=== PATIENT | female | born 1990 | race Hispanic/Latino ===

== ENCOUNTER 2016-07-10 09:08 | Outpatient (CLI) | payer OTHER ==
[~2016-07-10] VITALS: Ht 165.1 cm; Wt 115.2 kg
[~2016-07-10 09:08] MED LIST: ADDERALL XR 2020 MG PO; BENTYL20 MG PO; BREAST PUMP MC; CLEOCIN300 MG PO; CLONIDINE HCL0.1 MG PO; ENDOCET 5-3251 EACH PO; FERROUS SULFAT325 MG PO; IBUPROFEN800 MG PO; IRON 100 PLUS1 EACH PO; MEDROL DOSEPAK4 MG PO; NAPROSYN500 MG PO; NAPROXEN500 MG PO; PHENERGAN-CODE120 ML PO; PRENATAL TABLE1 EAC3 PO; PROVENTIL HFA6.7 GM IH; SERTRALINE HCL25 MG PO; VICODIN,LORT1 TABLET PO; ZITHROMAX TRI-500 MG PO
[2016-07-10 09:22] VITALS: BP 136/82
[2016-07-10 09:38] VITALS: BP 130/59
[2016-07-10] MEDS ORDERED: PRENATAL TABLE1 EACH PO (09:47)
[2016-07-10] MEDS ORDERED: IRON325 M1 PO (09:48)
[2016-07-10 10:29] VITALS: BP 134/80
== END 2016-07-10 11:06 | disposition home or self-care (01) ==
LOC: LDRP-OP 09:08 → 2WEST 09:09
DX: O47.03 False labor before 37 completed weeks of gestation, third trimester (principal); O34.219 Maternal care for unspecified type scar from previous cesarean delivery; Z3A.36 36 weeks gestation of pregnancy; O99.213 Obesity complicating pregnancy, third trimester; O99.333 Smoking (tobacco) complicating pregnancy, third trimester; F17.200 Nicotine dependence, unspecified, uncomplicated
CPT/HCPCS: 59025; G0378

== ENCOUNTER 2016-07-19 17:49 | Outpatient (CLI) | payer OTHER ==
[~2016-07-19] VITALS: Ht 167.6 cm; Wt 101.0 kg
[~2016-07-19 17:49] MED LIST changes: +IRON325 M1 PO; +PRENATAL TABLE1 EACH PO
[2016-07-19 18:25] VITALS: BP 123/58
[2016-07-19 19:02] VITALS: BP 128/65
[2016-07-19 19:44] LABS: EOSINOPHIL COUNT 0.1 K/uL (0-0.3); IMMATURE GRANULOCYTE (%) 0.5 % (0.0-0.7); IMMATURE GRANULOCYTE COUNT 0.1 K/uL; INSTRUMENT ABS NEUTROPHIL CT 10.3 K/uL; LYMPHOCYTE COUNT 2.6 K/uL (1.0-2.8); MCH 29.4 PG (29.0-34.0); MCHC 34.1 G/DL (30.0-36.0); MCV 86.1 FL (83-99); MEAN PLAT.VOLUME 12.4 uM^3 (9.5-12.4); MONOCYTE (%) 4.2 % (3-12); MONOCYTE COUNT 0.6 K/uL (0-0.8); NEUTROPHIL (%) 75.4 % (45-76); NEUTROPHIL COUNT 10.3 K/uL (1.8-6.4); PLATELET COUNT 221 K/uL (156-360); RBC DIS.WIDTH-CV 14.6 % (11.8-14.6); RBC DIS.WIDTH-SD 45.7 % (39-53); RED BLOOD COUNT 3.95 M/uL (3.80-5.20); WHITE BLOOD COUNT 13.6 K/uL (4.1-10.2)
[2016-07-19 21:29] VITALS: BP 130/62
== END 2016-07-19 21:49 | disposition home or self-care (01) ==
LOC: LDRP-OP 17:49 → 2WEST 17:50 → LDRP-OP 08-31 06:06
PROVIDERS: Advanced Practice Midwife
DX: O47.1 False labor at or after 37 completed weeks of gestation (principal); Z3A.38 38 weeks gestation of pregnancy; O34.219 Maternal care for unspecified type scar from previous cesarean delivery
CPT/HCPCS: 59025; 85025; 86900; 86901; G0378; J7120

== ENCOUNTER 2016-07-21 09:22 | Inpatient (IN) | payer OTHER ==
[~2016-07-21] VITALS: Ht 165.1 cm; Wt 118.8 kg
[2016-07-21] VITALS (7 sets, daily range): BP systolic 106–129; BP diastolic 56–74
[2016-07-21 13:41] LABS: EOSINOPHIL (%) 0.7 % (0-5); EOSINOPHIL COUNT 0.1 K/uL (0-0.3); HEMATOCRIT 34.1 % (36.0-46.0); IMMATURE GRANULOCYTE (%) 0.4 % (0.0-0.7); IMMATURE GRANULOCYTE COUNT 0.1 K/uL; LYMPHOCYTE COUNT 2.5 K/uL (1.0-2.8); MCHC 32.8 G/DL (30.0-36.0); MCV 85.3 FL (83-99); MONOCYTE (%) 6.4 % (3-12); MONOCYTE COUNT 0.9 K/uL (0-0.8); NEUTROPHIL (%) 74.1 % (45-76); PLATELET COUNT 198 K/uL (156-360); RBC DIS.WIDTH-CV 14.6 % (11.8-14.6); RBC DIS.WIDTH-SD 45.3 % (39-53); WHITE BLOOD COUNT 13.5 K/uL (4.1-10.2)
[2016-07-22] VITALS (7 sets, daily range): BP systolic 111–138; BP diastolic 56–69
[2016-07-22 07:23] LABS: EOSINOPHIL COUNT 0.1 K/uL (0-0.3); HEMATOCRIT 29.1 % (36.0-46.0); IMMATURE GRANULOCYTE (%) 0.5 % (0.0-0.7); IMMATURE GRANULOCYTE COUNT 0.1 K/uL; INSTRUMENT ABS NEUTROPHIL CT 9.5 K/uL; LYMPHOCYTE COUNT 2.6 K/uL (1.0-2.8); MCH 28.4 PG (29.0-34.0); MCV 86.1 FL (83-99); MEAN PLAT.VOLUME 12.3 uM^3 (9.5-12.4); MONOCYTE (%) 5.6 % (3-12); MONOCYTE COUNT 0.7 K/uL (0-0.8); NEUTROPHIL (%) 72.9 % (45-76); NEUTROPHIL COUNT 9.5 K/uL (1.8-6.4); PLATELET COUNT 169 K/uL (156-360); RBC DIS.WIDTH-CV 14.6 % (11.8-14.6); RBC DIS.WIDTH-SD 45.8 % (39-53); RED BLOOD COUNT 3.38 M/uL (3.80-5.20); WHITE BLOOD COUNT 13.1 K/uL (4.1-10.2)
[2016-07-22] MEDS ORDERED: BREAST PUMP MC (14:10)
[2016-07-23 03:00] VITALS: BP 129/74
[2016-07-23 08:25] VITALS: BP 130/73
[2016-07-23 11:00] VITALS: BP 112/66
[2016-07-23 15:00] VITALS: BP 131/84
[2016-07-23 23:00] VITALS: BP 128/79
[2016-07-24] MEDS ORDERED: FERROUS SULFAT325 MG PO (06:42)
[2016-07-24] MEDS ORDERED: ENDOCET 5-3251 EACH PO (06:42)
[2016-07-24] MEDS ORDERED: IBUPROFEN800 MG PO (06:42)
[2016-07-24 07:22] VITALS: BP 137/76
[2016-07-24 11:23] VITALS: BP 137/79
== END 2016-07-24 13:46 | disposition home or self-care (01) | DRG 765 ==
LOC: LDRP-OP 09:22 → 2WEST 09:23 → LDRP-OP 08-31 22:11
PROVIDERS: Obstetrics & Gynecology; Obstetrics & Gynecology Obstetrics
PROC: 10D00Z1 Extraction of Products of Conception, Low, Open Approach (ICD-10-PCS; principal; 2016-07-21)
DX: O42.92 Full-term premature rupture of membranes, unspecified as to length of time between rupture and onset of labor (principal); O34.219 Maternal care for unspecified type scar from previous cesarean delivery; O99.824 Streptococcus B carrier state complicating childbirth; D62 Acute posthemorrhagic anemia; O90.81 Anemia of the puerperium; O99.214 Obesity complicating childbirth; E66.9 Obesity, unspecified; O69.81X0 Labor and delivery complicated by cord around neck, without compression, not applicable or unspecified; Z37.0 Single live birth; Z3A.38 38 weeks gestation of pregnancy; Z68.41 Body mass index [BMI] 40.0-44.9, adult
CPT/HCPCS: 85025; 86900; 86901; J1200; J1580; J1885; J2274; J2405; J3010; J7050; J7120